=== PATIENT | male | born 1935 | race Caucasian/White ===

== ENCOUNTER → 2023-04-17 13:41 | Outpatient (REF) | payer MEDICARE, SELFPAY | LOC: MRI 13:41 | PROVIDERS: ATTENDING PHYSICIAN Orthopaedic Surgery; FAMILY PHYSICIAN Internal Medicine | DX: M54.50 Low back pain, unspecified (principal) | CPT/HCPCS: 72148 ==

== ENCOUNTER 2023-10-11 05:55 | Emergency (ER) | payer MEDICARE, SELFPAY ==
[2023-10-11] VITALS (9 sets, daily range): BP systolic 157–184; BP diastolic 73–86; BMI 30.4
--- NOTE | 2023-10-11 06:17 | ED.GENMED ---
History of Present Illness
General
Chief Complaint: Blood Pressure Problem
Time Seen by Provider: 10/11/23 06:17
History of Present Illness
History of Present Illness:
HPI: The patient presents with ongoing dizziness that has had for years as well as concerns for high blood pressure readings. His doctor increased his lisinopril from 20 mg to 30 mg 3 days ago. He also reports having a pacemaker that was inserted
about 3 years ago. He has no shortness of breath. There was some questionable chest discomfort earlier in the day. He feels that his dizziness worsens when his blood pressure is elevated.
EXAM:
GENERAL: Well appearing in no distress, blood pressure around 180/80
HEENT: Moist oral mucosa
CARDIOVASCULAR: No murmurs, normal heart rate, regular rhythm, No chest wall tenderness
PULMONARY: No respiratory distress, breath sounds are clear and equal
ABDOMEN: Soft with no peritoneal signs, no tenderness
NEUROLOGIC: Excellent strength all extremities, no coordination deficits, normal finger-nose testing
PSYCHIATRIC: Appropriate mental status, normal insight and judgement
EXTREMITIES: Nontender, no edema, moves all extremities equally
SKIN: No rash, no lesions
TIME OF INITIAL ENCOUNTER: 6:30 AM
NUMBER AND COMPLEXITY OF PROBLEMS ADDRESSED AT THE ENCOUNTER
� Chronic conditions affecting care: High blood pressure, hyperlipidemia, right kidney cancer/right nephrectomy
� Acute Exacerbation and/or Progression of Chronic Illness: This is an acute upon chronic problem
� Differential Diagnosis includes: Acute exacerbation of chronic dizziness, hypertensive urgency
AMOUNT AND/OR COMPLEXITY OF DATA TO BE REVIEWED AND ANALYZED
� I performed an independent evaluation of and my interpretation is:
EKG: V-paced 76
CT:
X-rays: Chest x-ray shows device right anterior chest wall
Laboratory Studies: CBC and chemistries unremarkable, troponin 0.013, chemistries unremarkable, BNP just slightly higher than prior
Other:
� Review of other/old records: I reviewed records. 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
� Clinical information was obtained by an independent historian: Spoke with [id number] at bedside
� Prescriptions/Medications Considered but not given:
� Further testing considered but not performed:
RISK OF COMPLICATIONS AND/OR MORBIDITY OR MORTALITY OF PATIENT MANAGEMENT
� Social determinants of health affecting care: Lives at home
� Discussion with other providers: I discussed case with Dr. Grant�CT reviewed with him; this appears to be chronic and not an acute issue. I spoke to voice and data technician who reports negative ultrasound of the left lower
extremity for DVT.
� Escalation of care including admission/observation vs risk of discharge considered: The patient was given IV fluids. He was also given his lisinopril 30 mg as he usually takes. His blood pressure started to improve. On
reassessment at 7:50 AM, the patient was able to get up, supine position without difficulty and was able to walk to the bathroom. He describes his dizziness as being chronic but is frustrated as to why he has ongoing dizziness. Blood work and
physical exam are relatively unremarkable. No dysrhythmia noted on interrogation. He was given a little bit of IV fluid today. On reassessment at 10 AM, the patient reports left calf discomfort�although this does not necessarily sound like an
acute problem will obtain ultrasound imaging. He states he has had sciatica in the past and has at least a borderline positive straight leg raise however the pain is primarily distal to the knee. On reassessment at 12 PM, the patient does have a
lot of complaints however a lot of these complaints are chronic such as sciatica and dizziness. No clear indication to keep in the hospital. We talked about switching to a different antihypertensive�will switch from 30 mg of lisinopril to 100 mg
of losartan daily. He is to take the first dose tomorrow.
Past History
Past History
ED Past Medical History: Cancer (Right kidney), CVA (2008), HTN, Hypercholesterolemia and Other (Hematuria, Ulcers, Kidney stones); Negative Asthma or NIDDM
ED Past Surgical History: Appendectomy, Cardiac and Other
Social History
Tobacco: Non-smoker
Alcohol: None
Drug: None
Personal:
Living: with family
Phy Exam
Physical Exam
Physical Exam:
See HPI
Course
Orders/Labs/Results
Orders:
Orders
10/11/23 06:03
Electrocardiogram (*1) Urgent
Reason for Study: Other
Other Reason for Exam: Respiratory Distress
Cardiac Monitoring- Treatment ONCE
EKG- Treatment ONCE
IV Insert/Care/Rem.- Treatment PRN
CR Chest - 2 Views Urgent
Comment:
Reason For Exam: respiratory distress
O2 Therapy [RESP] Urgent
Titrate/Wean O2 to maintain O2 sat greater than (%): 93
Special Instructions: TO MAINTAIN CONTINUOUS O2 SATS >/= 93%
Pulse Ox/cont/shift [RESP] Urgent
Quantity: 1
Special Instructions: continuous pulse ox
10/11/23 06:24
Complete Blood Count/With Diff Urgent
Comprehensive Metabolic Panel Urgent
NT-proBNP Urgent
Troponin I Urgent
10/11/23 06:30
0.9% Sodium Chloride 500 ml [Nss] 500 ml IV BOLUS
Lisinopril [Zestril] 30 mg PO NOW STA
10/11/23 06:32
Interrogate Pacemaker- Treatment ONCE
Comment: Medtronic
10/11/23 07:50
CT Head W/o Iv Contrast Urgent
Comment:
Reason For Exam: worsening dizziness
10/11/23 09:57
US Legs, Left [US Periph Venous LOWER Ext LT] Urgent
Comment:
Reason For Exam: L calf pain
Abnormal Lab Results
10/11/23
06:24
Absolute Lymphs (auto) 1.1 L 10^3/uL
(1.2-3.4)
Lymphocytes % 19.9 L %
(20.5-51.1)
Eosinophils % 7.1 H %
(0-6)
Glucose 119 H mg/dl
(70-99)
10/11/23 06:24
10/11/23 06:24
Vital Signs
Blood pressure: 157/80
Initial and Last Documented VS:
Initial Vital Signs
Temp Pulse Resp BP Pulse Ox
98.4 F 82 20 184/86 95
10/11/23 05:58 10/11/23 05:58 10/11/23 05:58 10/11/23 05:58 10/11/23 05:58
Last Documented Vital Signs
Temp Pulse Resp BP Pulse Ox
98.4 F 69 16 159/74 94
10/11/23 05:58 10/11/23 12:00 10/11/23 12:00 10/11/23 12:00 10/11/23 12:00
*Critical Care Note
Total Time (30-74mins, 75-104mins- exclusive of procedures): Not Applicable
ED Attending Note
-
Portions of this chart may have been created with voice recognition software.� Occasional wrong word or��sound alike� substitutions may have occurred due to the inherent limitations of voice recognition software.
Discharge Plan
Departure
Patient Disposition: Home (Routine Discharge)
Date of Disposition: 10/11/23
Time of Disposition: 12:13
Patient with high blood pressure during this ER visit?: Yes
Discharge Problem:
Dizziness
Instructions: High Blood Pressure (DC), BLOOD PRESSURE
Prescriptions:
New
losartan 100 mg tablet
100 mg PO DAILY Qty: 30 0RF
No Action
atorvastatin 40 MG tablet
40 mg PO HS
clopidogrel [Plavix] 75 MG tablet
75 mg PO DAILY
amlodipine 10 MG tablet
10 mg PO DAILY
lisinopril 40 MG tablet
10 mg PO DAILY
magnesium [Magnacaps] 100 MG capsule
400 mg PO DAILY
Referrals:
Won Moreira MD [Family Provider] -
Activity Restrictions/Additional Instructions:
I am switching you from lisinopril 30 mg daily to losartan 100 mg daily. I am hoping this will help with your symptoms. You should follow-up with your primary care doctor for reassessment. Return here if worse.
Interventions
Interventions:
*Risk Screen - Suicide Last Done: 10/11/23 05:58
*General Assessment Last Done: 10/11/23 05:58
*Neglect/Abuse Screening Last Done: 10/11/23 05:58
ED- Fall Risk Assessment Last Done: 10/11/23 05:58
*ED COVID-19 Vaccine History Last Done: 10/11/23 05:58
ED- Cardiac Assessment Last Done: 10/11/23 07:07
ED- Neurological Assessment Last Done: 10/11/23 07:07
ED- Pulmonary Assessment Last Done: 10/11/23 07:07
Discharge Date and Time
Print Language: VIET[place]ESE
[2023-10-11] MEDS: ZESTRIL 30 MG PO (06:40)
[2023-10-11] MEDS: NSS 500 IV (06:41)
[2023-10-11 06:45] LABS: % Basophils 0.7 % (0-2); % Eosinophils 7.1 % (0-6); % Immature Granulocytes 0.4 % (0-0.5); % Lymphocytes 19.9 % (20.5-51.1); % Monocytes 7.1 % (1.7-9.3); % Neutrophils 64.8 % (42.2-75.2); Absolute Eosinophils 0.4 10^3/uL (0-0.7); Absolute Lymphocytes 1.1 10^3/uL (1.2-3.4); Absolute Monocytes 0.4 10^3/uL (0.1-0.6); Absolute Neutrophils 3.6 10^3/uL (1.4-6.5); Hematocrit 42.8 % (39.0-52.0); Hemoglobin 14.7 g/dL (13.0-18.0); Mean Corp Hgb Conc. 34.3 g/dL (33.0-37.0); Mean Corpuscular Hgb 29.1 pg (27.0-31.0); Mean Corpuscular Volume 84.6 fL (80.0-94.0); Mean Platelet Volume 10.4 fL (7.4-10.4); Nucleated Red Blood Cells % 0 % (-); Platelet Count 164 10^3/uL (130-400); Red Blood Cell Count 5.06 10^6/uL (4.70-6.10); Red Cell Dist. Width 13.5 % (11.5-14.5); White Blood Cell Count 5.5 10^3/uL (4.8-10.8)
[2023-10-11 06:56] LABS: ALT (SGPT) 44 U/L (0-50); AST (SGOT) 32 U/L (17-59); Alkaline Phosphatase 82 U/L (38-126); Blood Urea Nitrogen 14 mg/dl (9-20); Carbon Dioxide 28 mmol/L (22-30); Chloride 106 mmol/L (98-107); Estimated Creatinine Clearance 67 ml/min; Glucose 119 mg/dl (70-99); Potassium 3.8 mmol/L (3.5-5.1); Sodium 139 mmol/L (135-145); Total Bilirubin 1.1 mg/dl (0.2-1.3); Total Protein 6.3 g/dl (6.3-8.2); eGFR > 60.00
[2023-10-11 07:07] LABS: NT-proBNP 592 pg/ml; Troponin I 0.013 ng/ml
== END 2023-10-11 12:22 | disposition home or self-care (01) ==
LOC: EMR 05:55
PROVIDERS: Emergency Medicine; EMERGENCY PHYSICIAN Emergency Medicine; FAMILY PHYSICIAN Internal Medicine
DX: R42 Dizziness and giddiness (principal); E78.00 Pure hypercholesterolemia, unspecified; I10 Essential (primary) hypertension; Z85.528 Personal history of other malignant neoplasm of kidney; Z86.73 Personal history of transient ischemic attack (TIA), and cerebral infarction without residual deficits; Z87.442 Personal history of urinary calculi; Z90.49 Acquired absence of other specified parts of digestive tract; Z95.0 Presence of cardiac pacemaker
CPT/HCPCS: 99284; 70450; 71046; 80053; 83880; 84484; 85025; 93005; 93971

== ENCOUNTER → 2024-09-02 13:16 | Outpatient (REF) | payer MEDICARE, SELFPAY | LOC: MRI 13:16 | PROVIDERS: ATTENDING PHYSICIAN Physician Assistant Medical; FAMILY PHYSICIAN Internal Medicine | DX: R26.89 Other abnormalities of gait and mobility (principal); M48.02 Spinal stenosis, cervical region; M54.50 Low back pain, unspecified; M48.04 Spinal stenosis, thoracic region | CPT/HCPCS: 72141; 72146; 72148; 76014; 76015 ==

== ENCOUNTER 2024-11-01 14:09 | Emergency (ER) | payer MEDICARE, SELFPAY ==
[2024-11-01 14:10] VITALS: BP 143/94
[2024-11-01 14:37] LABS: Hematocrit 41.0 % (39.0-52.0); Hemoglobin 14.2 g/dL (13.0-18.0); Mean Corp Hgb Conc. 34.6 g/dL (33.0-37.0); Mean Corpuscular Volume 84.5 fL (80.0-94.0); Nucleated Red Blood Cells % 0 % (-); Platelet Count 215 10^3/uL (130-400); Red Cell Dist. Width 13.2 % (11.5-14.5)
[2024-11-01 14:54] VITALS: BP 150/67; BMI 30.4
[2024-11-01 15:00] VITALS: BP 139/68
[2024-11-01 15:04] LABS: ALT (SGPT) 31 U/L (0-50); AST (SGOT) 31 U/L (17-59); Albumin 4.4 g/dl (3.5-5.0); Alkaline Phosphatase 91 U/L (38-126); Blood Urea Nitrogen 26 mg/dl (9-20); Calcium 9.3 mg/dl (8.4-10.2); Carbon Dioxide 25 mmol/L (22-30); Chloride 99 mmol/L (98-107); Estimated Creatinine Clearance 54 ml/min; Glucose 184 mg/dl (70-99); Potassium 4.4 mmol/L (3.5-5.1); Sodium 132 mmol/L (135-145); Total Protein 7.1 g/dl (6.3-8.2); eGFR > 60.00
[2024-11-01 15:12] LABS: Troponin I 0.015 ng/ml
[2024-11-01 15:44] LABS: INR 1.07; PT 14.2 Sec (11.4-14.6)
[2024-11-01 16:00] VITALS: BP 141/63
--- NOTE | 2024-11-01 16:04 | ED.GENMED ---
History of Present Illness
<DO Lalo Lopez Filed: 11/01/24 17:45>
General
Chief Complaint: Chest Pain
Source: patient and family
Time Seen by Provider: 11/01/24 15:15
History of Present Illness
History of Present Illness:
89-year-old male presents to the emergency room for evaluation of chest pressure, lightheadedness and head pressure. Patient's been having all of the symptoms intermittently but seem to be worse today. He has been instructed by his tie man to
keep track of his blood pressure 3 times a day. He noted his blood pressures are elevated today as well. They have been elevated intermittently and his tie man is titrating his medications to control the blood pressure. No fever, chills,
cough. Patient was seen in the emergency room about a year ago for similar symptoms.
Past History
<DO Lalo Lopez Filed: 11/01/24 17:45>
Past History
ED Past Medical History: Cancer (Right kidney), CVA (2009), HTN, Hypercholesterolemia and Other (Hematuria, Ulcers, Kidney stones); Negative Asthma or NIDDM
ED Past Surgical History: Appendectomy, Cardiac and Other
Social History
Tobacco: Non-smoker
Alcohol: None
Drug: None
Personal:
Living: with family
Phy Exam
<DO Lalo Lopez Last Filed: 11/01/24 17:45>
Physical Exam
Physical Exam:
General: Awake, Alert, Oriented X3. No acute distress.
Vitals: unremarkable
Head: Atraumatic
Eyes: Pupils equal, EOMI
Throat: Airway intact, no exudates
Neck: Trachea midline
Lungs: Clear and equal b/l
Heart: Regular rate, no murmurs
Abd: Soft, Nontender, No pulsatile mass
Neuro: Nonfocal
Skin: Warm, dry, no rash
Extremities: pulses equal b/l, no edema
Scores
<Yan Rudd, DO - Last Filed: 11/01/24 19:49>
Heart Score for Chest Pain Patients
STEMI patient?: No
History: Slightly or Non-Suspicious
ECG: Nonspecific Repolarization
Age: >/= 65 years
Risk Factors: 1 or 2 Risk Factors
Troponin: </= Normal Limit
Heart Score for Chest Pain Patients: 4
Heart Score Risk: 20.3% MACE over next 6 weeks
Course
<Gumaro Burnham, DO - Last Filed: 11/01/24 17:45>
Orders/Labs/Results
Orders:
Orders
11/01/24 14:13
Electrocardiogram (*1) Urgent
Reason for Study: Chest Pain
EKG- Treatment ONCE
11/01/24 14:27
Complete Blood Count/With Diff Urgent
Comprehensive Metabolic Panel Urgent
Prothrombin Time Urgent
Troponin I Urgent
11/01/24 16:04
CT Head W/o Iv Contrast Urgent
Comment:
Reason For Exam: dizziness
11/01/24 17:43
CR Chest - 2 Views Urgent
Comment:
Reason For Exam: sob
11/01/24 17:50
0.9% Sodium Chloride 1000 ml [Nss] 1,000 ml IV BOLUS
Cefepime HCl [Maxipime] 2,000 mg IV NOW STA
Vancomycin [Vancocin] 2,000 mg 0.9% Sodium Chloride 500 ml [Nss] 500 ml IV NOW
11/01/24 18:51
Lactic Acid Q4H
Comment: CANCEL 2nd LACTIC ACID IF 1st LACTIC ACID IS LESS THAN 2
Troponin I Urgent
Abnormal Lab Results
11/01/24
14:27
Absolute Lymphs (auto) 1.0 L 10^3/uL
(1.2-3.4)
Lymphocytes % 17.4 L %
(20.5-51.1)
Sodium 132 L mmol/L
(135-145)
BUN 26 H mg/dl
(9-20)
Glucose 184 H mg/dl
(70-99)
11/01/24 14:27
11/01/24 14:27
Vital Signs
Initial and Last Documented VS:
Initial Vital Signs
Temp Pulse Resp BP Pulse Ox
97.7 F 86 18 143/94 97
11/01/24 14:10 11/01/24 14:10 11/01/24 14:10 11/01/24 14:10 11/01/24 14:10
Last Documented Vital Signs
Temp Pulse Resp BP Pulse Ox
97.7 F 69 18 151/69 94
11/01/24 14:10 11/01/24 17:00 11/01/24 17:00 11/01/24 17:00 11/01/24 17:00
<Yan Rudd, DO - Last Filed: 11/01/24 19:49>
Orders/Labs/Results
Orders:
Orders
11/01/24 14:13
Electrocardiogram (*1) Urgent
Reason for Study: Chest Pain
EKG- Treatment ONCE
11/01/24 14:27
Complete Blood Count/With Diff Urgent
Comprehensive Metabolic Panel Urgent
Prothrombin Time Urgent
Troponin I Urgent
11/01/24 16:04
CT Head W/o Iv Contrast Urgent
Comment:
Reason For Exam: dizziness
11/01/24 17:43
CR Chest - 2 Views Urgent
Comment:
Reason For Exam: sob
11/01/24 17:50
0.9% Sodium Chloride 1000 ml [Nss] 1,000 ml IV BOLUS
Cefepime HCl [Maxipime] 2,000 mg IV NOW STA
Vancomycin [Vancocin] 2,000 mg 0.9% Sodium Chloride 500 ml [Nss] 500 ml IV NOW
11/01/24 18:51
Lactic Acid Q4H
Comment: CANCEL 2nd LACTIC ACID IF 1st LACTIC ACID IS LESS THAN 2
Troponin I Urgent
Abnormal Lab Results
11/01/24
14:27
Absolute Lymphs (auto) 1.0 L 10^3/uL
(1.2-3.4)
Lymphocytes % 17.4 L %
(20.5-51.1)
Sodium 132 L mmol/L
(135-145)
BUN 26 H mg/dl
(9-20)
Glucose 184 H mg/dl
(70-99)
11/01/24 14:27
11/01/24 14:27
Vital Signs
Initial and Last Documented VS:
Initial Vital Signs
Temp Pulse Resp BP Pulse Ox
97.7 F 86 18 143/94 97
11/01/24 14:10 11/01/24 14:10 11/01/24 14:10 11/01/24 14:10 11/01/24 14:10
Last Documented Vital Signs
Temp Pulse Resp BP Pulse Ox
97.7 F 69 18 151/69 94
11/01/24 14:10 11/01/24 17:00 11/01/24 17:00 11/01/24 17:00 11/01/24 17:00
<Gumaro Esther Burnham, DO - Last Filed: 11/01/24 17:45>
MDM/Problems Addressed
Differential Diagnosis Includes:
Acute coronary syndrome, uncontrolled hypertension, heart failure,
MDM/Problems Addressed:
Patient presents with dizziness, chest pressure, elevated blood pressure. Patient has been experiencing the symptoms on and off for at least a year. Seems a bit worse today. EKG shows no acute ischemic changes. Labs thus far are unremarkable and
quite impressive considering the patient is 89. He has a head CT which shows no acute abnormality. 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 I updated the patient that we will repeat his troponin and will get a chest x-ray. Patient seems
somewhat frustrated that were not going to be able to answer why he has been having the symptoms for the past year. I explained that we can only rule out the most serious unstable issues in the emergency room and will have him follow-up with his
casting room operator as an outpatient.
<Gumaro Burnham, DO - Last Filed: 11/01/24 17:45>
*Pulse Oximetry
SaO2: 95
Oxygen Mode of Delivery: Room air
<Yan Rudd, DO - Last Filed: 11/01/24 19:49>
*Pulse Oximetry
Patient hypoxic: no
*Critical Care Note
Total Time (30-74mins, 75-104mins- exclusive of procedures): Not Applicable
<Yan Rudd, DO - Last Filed: 11/01/24 19:49>
Update Note
Update Note:
7:45 PM care of patient was transitioned earlier pending repeat troponin and chest x-ray. Patient complaining of intermittent chest pressure. Troponin negative x 2. Chest x-ray shows no acute pathology. Patient is somewhat frustrated with his
symptoms and with no clear diagnosis. We did discuss that from the emergency standpoint, he does not appear to be having an active heart attack. This is somewhat reassuring to him. He was placed on the cardiac callback tracker and understands
that the casting room operator will continue the workup
ED Attending Note
<Gumaro Burnham, DO - Last Filed: 11/01/24 17:45>
-
Portions of this chart may have been created with voice recognition software.� Occasional wrong word or��sound alike� substitutions may have occurred due to the inherent limitations of voice recognition software.
Discharge Plan
Departure
Patient Disposition: Home (Routine Discharge)
Date of Disposition: 11/01/24
Time of Disposition: 19:48
Patient with high blood pressure during this ER visit?: Yes
Condition: Fair
Discharge Problem:
Chest pain, Shortness of breath, Hypertension
Instructions: Chest Pain CBC Follow Up
Prescriptions:
No Action
atorvastatin 40 MG tablet
40 mg PO HS
clopidogrel [Plavix] 75 MG tablet
75 mg PO DAILY
amlodipine 10 MG tablet
10 mg PO DAILY
lisinopril 40 MG tablet
10 mg PO DAILY
magnesium [Magnacaps] 100 MG capsule
400 mg PO DAILY
losartan 100 mg tablet
100 mg PO DAILY Qty: 30 0RF
Referrals:
Won Moreira MD [Family Provider, Internal Medicine]
Activity Restrictions/Additional Instructions:
Please return for any worsening symptoms.
You may return at any time if you have further concerns.
Please follow up with your doctor at the first available appointment, preferably this week.
You were placed on the cardiac callback tracker. Someone from their office should call you in the next few days. If you do not hear from them in the next few days, please give them a call.
Thank you for choosing [facility].
Interventions
Interventions:
*Risk Screen - Suicide Last Done: 11/01/24 14:10
*General Assessment Last Done: 11/01/24 14:10
*Neglect/Abuse Screening Last Done: 11/01/24 14:10
*ED- Fall Risk Assessment Last Done: 11/01/24 14:56
*ED COVID-19 Vaccine History Last Done: 11/01/24 14:56
ED- Cardiac Assessment Last Done: 11/01/24 14:57
Discharge Date and Time
Print Language: AZERI
[2024-11-01 16:37] VITALS: BP 164/71
[2024-11-01 17:00] VITALS: BP 151/69
[2024-11-01 19:25] LABS: Troponin I 0.022 ng/ml
== END 2024-11-01 20:00 | disposition home or self-care (01) ==
LOC: EMR 14:09
PROVIDERS: Emergency Medicine; EMERGENCY PHYSICIAN Emergency Medicine; FAMILY PHYSICIAN Internal Medicine
DX: R06.02 Shortness of breath (principal); R07.89 Other chest pain; R42 Dizziness and giddiness; I10 Essential (primary) hypertension; G93.0 Cerebral cysts; E78.00 Pure hypercholesterolemia, unspecified; Z95.0 Presence of cardiac pacemaker; Z86.73 Personal history of transient ischemic attack (TIA), and cerebral infarction without residual deficits; Z85.528 Personal history of other malignant neoplasm of kidney; Z87.442 Personal history of urinary calculi
CPT/HCPCS: 99285; 93288; 70450; 71046; 80053; 83605; 84484; 85025; 85610; 93005

== ENCOUNTER → 2024-11-12 08:04 | Outpatient (REF) | payer OTHER, SELFPAY | LOC: HWRCS 08:04 | PROVIDERS: ATTENDING PHYSICIAN Student in an Organized Health Care Education/Training Program; FAMILY PHYSICIAN Internal Medicine | DX: Z95.0 Presence of cardiac pacemaker (principal) | CPT/HCPCS: 93306 ==

== ENCOUNTER → 2024-11-20 07:39 | Outpatient (REF) | payer OTHER, SELFPAY | LOC: HWRCS 07:39 | PROVIDERS: ATTENDING PHYSICIAN Student in an Organized Health Care Education/Training Program; FAMILY PHYSICIAN Internal Medicine | DX: Z95.0 Presence of cardiac pacemaker (principal) | CPT/HCPCS: 78452; 93017; A9500; J2785 ==

== ENCOUNTER 2024-12-01 06:27 | Day surgery (SDC) | payer OTHER, SELFPAY ==
[2024-12-01] VITALS (13 sets, daily range): BP systolic 120–170; BP diastolic 61–84; BMI 30.9
[2024-12-01] MEDS: LOW STRENGTH ASPIRIN 81 MG PO (06:58)
--- NOTE | 2024-12-01 16:10 | ITS.CL.PN ---
Imaging Analyst - Procedure Note
Procedure
Procedure Note:
CARDIAC CATHETERIZATION REPORT
Date of Procedure: 12/01/2024
Referring: Dr. Claude Yates MD
Indication: Anginal chest pain, new regional wall motion abnormalities on echo
PROCEDURE(S)
1. left heart catheterization
2. coronary angiography
ACCESS: 6F right radial artery (closure: radial band)
CATHETERS
1. 6F JR5
2. 6F JL3.5
MODERATE SEDATION: 30 minutes of moderate sedation was utilized. An independent medical assistant internal medicine was present to assist with and help manage the patient's level of consciousness and physiologic status.
HEMODYNAMIC DATA
LV 107/8 (EDP 13) mmHg
AO 107/59 (mean 85) mmHg
CORONARY ANGIOGRAPHY
Dominance: Right
LM: Large with mild distal tapering
LAD: Large vessel giving rise to a large D1. There are mild luminal irregularities only.
LCx: Large vessel giving rise to a moderate caliber high rising OM1/ramus, large OM2, small OM3, small LPL1, and moderate caliber LPL2. There are mild luminal irregularities only.
RCA: Large vessel giving rise to moderate caliber RPL1 and small RPL2. There are mild luminal irregularities only.
RADIATION: dose 357 mGy; DAP 23.7 Gy*cm2; fluoroscopy time 5.8 min
CONCLUSIONS
1. Normal LV filling pressure and no aortic stenosis
2. Trivial luminal irregularities in a right dominant system
RECOMMENDATIONS
1. Primary prevention of coronary artery disease
2. Treatment of nonischemic cardiomyopathy and workup for nonischemic etiology of patient's exertional symptoms
Copy to: Dr. Claude Yates MD (regulatory administrator); Dr. Won Moreira MD (PCP)
Signed: Aden Cueto MD, PhD
== END 2024-12-01 11:30 | disposition home or self-care (01) ==
LOC: CATH 06:27
PROVIDERS: ATTENDING PHYSICIAN Student in an Organized Health Care Education/Training Program; FAMILY PHYSICIAN Internal Medicine; OTHER PHYSICIAN Internal Medicine Cardiovascular Disease
DX: I35.1 Nonrheumatic aortic (valve) insufficiency (principal); I42.8 Other cardiomyopathies; I44.2 Atrioventricular block, complete; I10 Essential (primary) hypertension; E78.2 Mixed hyperlipidemia; R42 Dizziness and giddiness; Z86.73 Personal history of transient ischemic attack (TIA), and cerebral infarction without residual deficits; Z79.899 Other long term (current) drug therapy; Z79.02 Long term (current) use of antithrombotics/antiplatelets
CPT/HCPCS: 99152; 99153; 93458; C1769; C1894; Q9967